=== PATIENT | male | born 2000 | race Caucasian/White ===

== ENCOUNTER 2022-06-22 12:00 | Emergency (ER) | payer OTHER ==
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
[2022-06-22] MEDS ORDERED: ZOFRAN ODT 4 MG PO ONE (12:11)
[2022-06-22] MEDS ORDERED: Hydromorphone 1 mg/ml Injection IM ONE (12:11)
[2022-06-22 12:13] VITALS: O2SAT 97
[2022-06-22] MEDS ORDERED: Hydromorphone 1 mg/ml Injection ONE (12:34)
[2022-06-22] MEDS ORDERED: ZOFRAN ODT 4 MG ONE (12:34)
[2022-06-22 13:21] VITALS: BP 133/85; PULSE 72
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
== END 2022-06-22 14:35 | disposition home or self-care (01) ==
LOC: ED 12:00
DX: Z04.1 Encounter for examination and observation following transport accident (principal); M25.551 Pain in right hip; M79.651 Pain in right thigh; Z79.891 Long term (current) use of opiate analgesic
CPT/HCPCS: 72192; 73700; 96372; 99283; J1170; Q0162

== ENCOUNTER 2023-02-03 21:16 | Emergency (ER) | payer OTHER ==
[2023-02-03 21:38] VITALS: O2SAT 98
[2023-02-03 22:26] VITALS: BP 122/74; PULSE 67
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
--- NOTE | 2023-02-04 08:41 | XRAY ---
Indication: Right frontal trauma. Pain and headache. Multiple contiguous axial images obtained through the head without contrast. Comparison: None Normal appearing brain parenchyma, ventricles, and bony calvarium. Visualized paranasal sinuses and mastoid air cells are clear. Impression: Normal CT head without contrast exam. Comment: Preliminary interpretation made by [facility]. No critical discrepancy.
== END 2023-02-03 22:49 | disposition home or self-care (01) ==
LOC: ED 21:16
DX: S00.03XA Contusion of scalp, initial encounter (principal); W20.8XXA Other cause of strike by thrown, projected or falling object, initial encounter; Y99.0 Civilian activity done for income or pay; R51.9 Headache, unspecified; Z28.310 Unvaccinated for COVID-19; Z72.0 Tobacco use
CPT/HCPCS: 70450; 99282

== ENCOUNTER 2023-04-23 22:47 | Emergency (ER) | payer OTHER ==
[2023-04-23 23:22] VITALS: O2SAT 100
[2023-04-23] MEDS ORDERED: Vibramycin 100 MG PO ONE (23:34)
[2023-04-23] MEDS ORDERED: Vibramycin 100 MG ONE (23:38)
--- NOTE | 2023-04-23 23:40 | ERPHSYRPT ---
- History of Present Illness Source: patient, other () Exam Limitations: no limitations Patient Subjective Stated Complaint: pt states he has an abscess in his rt groin since wednesday Triage Nursing Assessment: pt alert and oriented, answers questions approp. pt ambulatory with steady gait noted. respirations nonlabored. skin warm and dry. approx 8x9cm indurated area to rt groin with redness surrounding. Physician History: 22 yo WM w R inguinal abscess x 1 week. Pt has a h/o abscess formation in same area. Pain is mild to moderate. He denies fever/drainage at this time. Pt is not a diabetic. Timing/Duration: other (1 week) Quality: painful Severity: moderate Location: other (R inguinal area) Possible Causes: no cause identified Associated Symptoms: denies symptoms Allergies/Adverse Reactions: amoxicillin Allergy (Verified 04/23/23 23:23) azithromycin Allergy (Verified 04/23/23 23:23) cephalexin [From Keflex] Allergy (Verified 04/23/23 23:23) Penicillins Allergy (Verified 04/23/23 23:23) Hx Tetanus, Diphtheria Vaccination/Date Given: Yes (2021) Hx Influenza Vaccination/Date Given: No Hx Pneumococcal Vaccination/Date Given: No Immunizations Up to Date: Yes Travel Risk - International Travel Have you traveled outside of the country in past 3 weeks: No - Coronavirus Screening Are you exhibiting any of the following symptoms?: No Close contact with a COVID-19 positive Pt in past 14-21 Days: No - Vaccine Status Have you recieved a Covid-19 vaccination: No - Review of Systems Constitutional: No Symptoms Eyes: No Symptoms Ears, Nose, & Throat: No Symptoms Respiratory: No Symptoms Cardiac: No Symptoms Abdominal/Gastrointestinal: No Symptoms Genitourinary Symptoms: No Symptoms Musculoskeletal: No Symptoms Neurological: No Symptoms Psychological: No Symptoms Endocrine: No Symptoms Hematologic/Lymphatic: No Symptoms Immunological/Allergic: No Symptoms - Past Medical History Pertinent Past Medical History: Yes Other Medical History: ventricular septal defect , enlarged heart valve - Past Surgical History Past Surgical History: Yes Other Surgical History: open heart surgery - Social History Smoking Status: Current every day smoker How long have you smoked: 8 yrs Exposure to second hand smoke: No Drug Use: none Patient Lives Alone: No - Nursing Vital Signs Nursing Vital Signs: Initial Vital Signs Temperature 97.8 F 04/23/23 23:06 Pulse Rate 71 05/26/23 23:06 Respiratory Rate 16 04/23/23 23:06 Blood Pressure 127/79 04/23/23 23:06 O2 Sat by Pulse Oximetry 100 04/23/23 23:06 Pain Scale Pain Intensity 3 WNL - Physical Exam General Appearance: no apparent distress Eye Exam: PERRL/EOMI, eyes nml inspection Ears, Nose, Throat Exam: normal ENT inspection, TMs normal, pharynx normal, moist mucous membranes Neck Exam: normal inspection, non-tender, supple, full range of motion, No meningismus, No mass, No Brudzinski, No Kernig's Respiratory Exam: normal breath sounds, lungs clear, airway intact Cardiovascular Exam: regular rate/rhythm, normal heart sounds, normal peripheral pulses, capillary refill <2 sec, No murmur Gastrointestinal/Abdomen Exam: soft, normal bowel sounds Back Exam: normal inspection Extremity Exam: normal inspection Neurologic Exam: alert, oriented x 3, 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, 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, normal mood/affect, nml cerebellar function, nml station & gait, sensation nml Skin Exam: other (R inguinal abscess wo drainage/TTP/ Moderate in size) SpO2 Interpretation: normal SpO2: 100 O2 Delivery: Room Air - Course Nursing assessment & vital signs reviewed: Yes Ordered Tests: Medication Summary Discontinued Medications Generic Name Dose Route Start Last Admin Trade Name Vitoq PRN Reason Stop Dose Admin Doxycycline Hyclate 100 mg 04/23/23 23:34 04/23/23 23:38 Doxycycline Hyclate 100 Mg Tablet PO 04/23/23 23:35 100 mg STAT ONE Administration Doxycycline Hyclate Confirm 04/23/23 23:38 Doxycycline Hyclate 100 Mg Tablet Administered 04/23/23 23:39 Dose 100 mg .ROUTE .STK-MED ONE - Progress Progress Note: 04/24/23 00:36 Nursing note and vital signs reviewed No food or housing insecurities noted Additional history per Pt refused I/D at this time and wanted po antibiotics 100mg po doxycycline Counseled pt/family regarding: diagnosis, need for follow-up Medical Desision Making - Independent Historian Additional History obtained from: Spouse - Risk of complications The pt has a mod risk of morbidity or mortality based on: Need for prescription drug management - Departure Departure Disposition: Home Clinical Impression: Abscess Condition: Stable Critical Care Time: No Referrals: DOCTOR,NO FAMILY [Primary Care Provider] - Follow up/PCP as directed Instructions: Skin Abscess Additional Instructions: Warm compresses Motrin/Tylenol for pain Continue w Doxycycline in the morning Return to ER for increasing pain, increasing redness, increasing swelling, or temperature greater than 100.5 Prescriptions: Doxycycline Monohydrate 100 mg PO BID #20 cap
[2023-04-24 00:18] VITALS: BP 126/72; PULSE 70
== END 2023-04-24 00:20 | disposition home or self-care (01) ==
LOC: ED 22:47
DX: L02.214 Cutaneous abscess of groin (principal); Z28.310 Unvaccinated for COVID-19; Z72.0 Tobacco use
CPT/HCPCS: 99281; A9270-GY

== ENCOUNTER 2024-03-16 22:00 | Emergency (ER) | payer SELFPAY ==
[2024-03-16 22:36] VITALS: TEMP 97.8
[2024-03-16] MEDS: Sodium Chloride 0.9% 1000 ML 1,000 ML IV STA (23:06)
[2024-03-16 23:07] LABS: Absolute Neutrophil Ct (ANC) 4.72 x10^3/uL (1.4-6.9); BASOPHIL % 0.3 % (0.0-0.4); Basophil (Absolute #) 0.02 x10^3/uL (0-0.4); Eosinophil % 1.4 % (0.00-5.0); Eosinophil (Absolute #) 0.11 x10^3/uL (0-0.5); Hematocrit 38.6 % (42-50); Hemoglobin 13.3 g/dL (12.5-18.0); IMMATURE GRAN # 0.01 x10^3u/L (0.00-0.03); IMMATURE GRAN % 0.1 % (0.00-0.4); Lymphocyte (Absolute #) 2.37 x10^3/uL (1.0-4.6); Lymphocytes % 31.1 % (24.0-44.0); Mean Cell Volume 83.4 fL (78-100); Mean Corpuscular Hemoglobin 28.7 pg (26-32); Mean Corpuscular Hgb Concent. 34.5 g/dL (32-36); Mean Platelet Volume 10.6 fL (7.5-11.0); Monocyte (Absolute #) 0.39 x10^3/uL (0.0-1.3); Monocytes % 5.1 % (0.0-12.0); Platelet Count 146 x10^3/uL (150-450); Red Blood Count 4.63 x10^6/uL (4.1-5.6); Red Cell Distribution Width 12.8 % (11.5-14.0); White Blood Count 7.6 x10^3/uL (4.0-10.5)
--- NOTE | 2024-03-16 23:07 | ERPHSYRPT ---
- History of Present Illness Time Seen by Provider: 03/16/24 22:08 Source: patient, family Exam Limitations: no limitations Patient Subjective Stated Complaint: pt was working in garage earlier and states he was sweating more than normally and spouse stated that he was pale Triage Nursing Assessment: pt ambulatory to bed by self with spouse at bedside, pt alert and oriented x3, skin pwd, pt has no complaints at this time. pt states "I feel perfectly normally.", pt afebrile Physician History: 23 years old healthy male presented in the ER with complains of generalized excessive sweating earlier while he was working in the garage. This happened almost hour and a half ago and he was looking pale with some nausea without vomiting. Denies having any chest pain palpitations or shortness of breath before or after. No abdominal pain. Denies any known sick contact. Not taking any medications. 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 Patient currently is asymptomatic. Allergies/Adverse Reactions: amoxicillin Allergy (Verified 03/16/24 22:24) azithromycin Allergy (Verified 03/16/24 22:24) cephalexin [From Keflex] Allergy (Verified 03/16/24 22:24) Penicillins Allergy (Verified 03/16/24 22:24) Home Medications: No Reportable Medications [No Reported Medications] 03/16/24 [History] Hx Tetanus, Diphtheria Vaccination/Date Given: Yes (2021) Hx Influenza Vaccination/Date Given: No Hx Pneumococcal Vaccination/Date Given: No Travel Risk - International Travel Have you traveled outside of the country in past 3 weeks: No - Emerging Infectious Disease Are you exhibiting symptoms associated with any current EIDs: No - Review of Systems Constitutional: No Symptoms Eyes: No Symptoms Ears, Nose, & Throat: No Symptoms Respiratory: No Symptoms Cardiac: No Symptoms Abdominal/Gastrointestinal: No Symptoms Genitourinary Symptoms: No Symptoms Musculoskeletal: No Symptoms Skin: No Symptoms Neurological: No Symptoms Endocrine: No Symptoms Hematologic/Lymphatic: No Symptoms - Past Medical History Pertinent Past Medical History: Yes Neurological History: No Pertinent History ENT History: No Pertinent History Cardiac History: Other Respiratory History: No Pertinent History Endocrine Medical History: No Pertinent History Musculoskeletal History: No Pertinent History GI Medical History: No Pertinent History History: No Pertinent History Psycho-Social History: No Pertinent History Male Reproductive Disorders: No Pertinent History Other Medical History: ventricular septal defect , enlarged heart valve - Past Surgical History Past Surgical History: Yes Neuro Surgical History: No Pertinent History Cardiac: CABG Respiratory: No Pertinent History Gastrointestinal: No Pertinent History Genitourinary: No Pertinent History Musculoskeletal: No Pertinent History Male Surgical History: No Pertinent History Other Surgical History: open heart surgery - Social History Smoking Status: Current every day smoker How long have you smoked: 12 Exposure to second hand smoke: No Drug Use: none Patient Lives Alone: No - Nursing Vital Signs Nursing Vital Signs: Initial Vital Signs Temperature 97.8 F 03/16/24 22:25 Pulse Rate 78 03/16/24 22:25 Respiratory Rate 22 03/16/24 22:25 Blood Pressure 144/79 03/16/24 22:25 O2 Sat by Pulse Oximetry 98 03/16/24 22:25 Pain Scale Pain Intensity 0 - Physical Exam General Appearance: no apparent distress, alert Eye Exam: PERRL/EOMI, eyes nml inspection Ears, Nose, Throat Exam: TMs normal, pharynx normal, moist mucous membranes, other (Cleft lip repair) Neck Exam: normal inspection, non-tender, supple, full range of motion Respiratory Exam: normal breath sounds, lungs clear Cardiovascular Exam: regular rate/rhythm, normal heart sounds Gastrointestinal/Abdomen Exam: soft, normal bowel sounds, No tenderness Extremity Exam: normal inspection, normal range of motion Neurologic Exam: alert, oriented x 3, cooperative Skin Exam: normal color, warm SpO2 Interpretation: normal SpO2: 98 O2 Delivery: Room Air - Course EKG Interpreted by Me: RATE (71), Sinus Rhythm, Right [place] Deviation, NORMAL INTERVALS, Non-specific ST Changes Ordered Tests: Medication Summary Discontinued Medications Generic Name Dose Route Start Last Admin Trade Name Vitoq PRN Reason Stop Dose Admin Sodium Chloride 1,000 mls @ 999 mls/hr 03/16/24 22:44 03/16/24 23:06 Sodium Chloride 0.9% 1000 Ml IV 03/16/24 23:44 Not Given .Q1H1M STA Lab/Rad Data: Laboratory Result Diagrams 03/16/24 23:05 03/16/24 23:05 Laboratory Results 03/16/24 03/16/24 03/16/24 Range/Units 23:05 23:05 23:05 WBC 7.6 (4.0-10.5) x10^3/uL RBC 4.63 (4.1-5.6) x10^6/uL Hgb 13.3 (12.5-18.0) g/dL Hct 38.6 L (42-50) % MCV 83.4 (78-100) fL MCH 28.7 (26-32) pg MCHC 34.5 (32-36) g/dL RDW 12.8 (11.5-14.0) % Plt Count 146 L (150-450) x10^3/uL MPV 10.6 (7.5-11.0) fL Gran % 62.0 (36.0-66.0) % Immature Gran % (Auto) 0.1 (0.00-0.4) % Nucleat RBC Rel Count 0.0 (0.00-0.1) % Eos # (Auto) 0.11 (0-0.5) x10^3/uL Immature Gran # (Auto) 0.01 (0.00-0.03) x10^3u/L Absolute Lymphs (auto) 2.37 (1.0-4.6) x10^3/uL Absolute Monos (auto) 0.39 (0.0-1.3) x10^3/uL Absolute Nucleated RBC 0.00 (0.00-0.01) x10^3u/L Lymphocytes % 31.1 (24.0-44.0) % Monocytes % 5.1 (0.0-12.0) % Eosinophils % 1.4 (0.00-5.0) % Basophils % 0.3 (0.0-0.4) % Absolute Granulocytes 4.72 (1.4-6.9) x10^3/uL Basophils # 0.02 (0-0.4) x10^3/uL Sodium 140 (135-145) mmol/L Potassium 4.2 (3.5-5.1) mmol/L Chloride 108 H (98-107) mmol/L Carbon Dioxide 26 (22-30) mmol/L Anion Gap 10.7 (5-15) MEQ/L BUN 22 H (9-20) mg/dL Creatinine 1.39 H (0.66-1.25) mg/dL Estimated GFR 72.6 ML/MIN Glucose 93 (74-106) mg/dL Calcium 9.5 (8.4-10.2) mg/dL Total Bilirubin 0.60 (0.2-1.3) mg/dL AST 30 (17-59) U/L ALT 35 (0-50) U/L Alkaline Phosphatase 85 (38-126) U/L Troponin I < 0.012 (0.000-0.033) ng/mL Serum Total Protein 7.4 (6.3-8.2) g/dL Albumin 4.4 (3.5-5.0) g/dL Lipase 97 (23-300) U/L Urine Color (Yellow) Urine Appearance (Clear) Urine pH (4.6-8.0) Ur Specific [place] (1.005-1.030) Urine Protein (Negative) Urine Glucose (UA) (Negative) mg/dL Urine Ketones (Negative) Urine Blood (Negative) Urine Nitrite (Negative) Urine Bilirubin (Negative) Urine Urobilinogen (0.2) mg/dL Ur Leukocyte Esterase (Negative) U Hyaline Cast (Auto) (0-2) /LPF Urine Microscopic RBC (0-5) /HPF Urine Microscopic WBC (0-5) /HPF Ur Epithelial Cells (None Seen) /HPF Urine Bacteria (None Seen) /HPF Urine Culture Reflexed (NO) 03/16/24 Range/Units 23:05 WBC (4.0-10.5) x10^3/uL RBC (4.1-5.6) x10^6/uL Hgb (12.5-18.0) g/dL Hct (42-50) % MCV (78-100) fL MCH (26-32) pg MCHC (32-36) g/dL RDW (11.5-14.0) % Plt Count (150-450) x10^3/uL MPV (7.5-11.0) fL Gran % (36.0-66.0) % Immature Gran % (Auto) (0.00-0.4) % Nucleat RBC Rel Count (0.00-0.1) % Eos # (Auto) (0-0.5) x10^3/uL Immature Gran # (Auto) (0.00-0.03) x10^3u/L Absolute Lymphs (auto) (1.0-4.6) x10^3/uL Absolute Monos (auto) (0.0-1.3) x10^3/uL Absolute Nucleated RBC (0.00-0.01) x10^3u/L Lymphocytes % (24.0-44.0) % Monocytes % (0.0-12.0) % Eosinophils % (0.00-5.0) % Basophils % (0.0-0.4) % Absolute Granulocytes (1.4-6.9) x10^3/uL Basophils # (0-0.4) x10^3/uL Sodium (135-145) mmol/L Potassium (3.5-5.1) mmol/L Chloride (98-107) mmol/L Carbon Dioxide (22-30) mmol/L Anion Gap (5-15) MEQ/L BUN (9-20) mg/dL Creatinine (0.66-1.25) mg/dL Estimated GFR ML/MIN Glucose (74-106) mg/dL Calcium (8.4-10.2) mg/dL Total Bilirubin (0.2-1.3) mg/dL AST (17-59) U/L ALT (0-50) U/L Alkaline Phosphatase (38-126) U/L Troponin I (0.000-0.033) ng/mL Serum Total Protein (6.3-8.2) g/dL Albumin (3.5-5.0) g/dL Lipase (23-300) U/L Urine Color Yellow (Yellow) Urine Appearance Clear (Clear) Urine pH 5.0 (4.6-8.0) Ur Specific [place] 1.015 (1.005-1.030) Urine Protein Negative (Negative) Urine Glucose (UA) Negative (Negative) mg/dL Urine Ketones Negative (Negative) Urine Blood Negative (Negative) Urine Nitrite Negative (Negative) Urine Bilirubin Negative (Negative) Urine Urobilinogen 0.2 (0.2) mg/dL Ur Leukocyte Esterase Negative (Negative) U Hyaline Cast (Auto) NONE SEEN (0-2) /LPF Urine Microscopic RBC 0-2 (0-5) /HPF Urine Microscopic WBC 0-2 (0-5) /HPF Ur Epithelial Cells None Seen (None Seen) /HPF Urine Bacteria None Seen (None Seen) /HPF Urine Culture Reflexed NO (NO) - Progress Progress: unchanged Progress Note: 03/17/24 00:18 23-year-old is evaluated for excessive sweating earlier. Patient is back to his baseline now. He was working when this happened. Patient EKG showed right bundle branch block and some diffuse ST changes with a negative initial troponins. Normal white count. Has some BRISA, recommended IV fluids which he declined. Patient states she can drink as much she can and will continue to do that for the next couple of days to rehydrate himself. He is not in any distress., Not having any chest pain. I have recommended obtaining second troponin but patient does not want to stay in the hospital at all and wants to go home. Discussed signs symptoms of worsening needing return to ER which he seems understanding. Counseled pt/family regarding: lab results, diagnosis, need for follow-up Medical Desision Making - Independent Historian Additional History obtained from: Spouse - Diagnostic Testing Diagnostic test were ordered, analyzed, and reviewed by me: Yes - Departure Departure Disposition: Home Clinical Impression: BRISA (acute kidney injury), Dehydration Condition: Stable Critical Care Time: No Referrals: DOCTOR,NO FAMILY [Primary Care Provider] - Follow up with PCP 1 day Instructions: Dehydration, Adult (DC), Acute Kidney Injury (DC) Additional Instructions: Drink plenty of fluids to keep yourself well-hydrated. Do not take ibuprofen Aleve but take Tylenol as needed. Follow-up with primary care for reevaluation and recheck of kidney functions. Return to ER for any worsening of symptoms like intractable vomiting diarrhea, chest pain palpitation shortness of breath etc.
[2024-03-16 23:15] LABS: Appearance Clear (Clear); Bacteria None Seen /HPF (None Seen); Bilirubin Negative (Negative); Blood Negative (Negative); Epithelial Cells None Seen /HPF (None Seen); Glucose, Urine Negative (Negative); Hyaline Casts NONE SEEN /LPF (0-2); Ketones Negative (Negative); Leukocyte Esterase Negative (Negative); Nitrite Negative (Negative); Protein,Urine Dip Negative (Negative); RBC 0-2 /HPF (0-5); Specific Gravity 1.015 (1.005-1.030); Urobilinogen 0.2 mg/dL (0.2); WBC 0-2 /HPF (0-5)
[2024-03-16 23:17] LABS: ADD URINE CULTURE? NO (NO)
[2024-03-16 23:31] LABS: ALBUMIN 4.4 g/dL (3.5-5.0); ANION GAP 10.7 MEQ/L (5-15); BILIRUBIN,TOTAL 0.6 mg/dL (0.2-1.3); Calcium 9.5 mg/dL (8.4-10.2); Creatinine 1 1.39 mg/dL (0.66-1.25); EST GLOMERULAR FILTRATION RATE 72.6 ML/MIN; Potassium 4.2 mmol/L (3.5-5.1); Total Protein 7.4 g/dL (6.3-8.2)
[2024-03-17 00:14] VITALS: BP 111/62; PULSE 73; RESP 16
[2024-03-17 00:20] VITALS: O2SAT 98
== END 2024-03-17 00:27 | disposition home or self-care (01) ==
LOC: ED 22:00
DX: E86.0 Dehydration (principal); N17.9 Acute kidney failure, unspecified; R61 Generalized hyperhidrosis
CPT/HCPCS: 36415; 80053; 81001; 83690; 84484; 85025; 93005; 99283